=== PATIENT | female | born 1995 | race Caucasian/White ===

== ENCOUNTER 2022-02-18 10:44 | Emergency (ER) | payer MEDICAID, SELFPAY ==
[2022-02-18 10:46] VITALS: BP 102/53; PULSE 80; RESP 16; TEMP 37.1; O2SAT 98
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
--- NOTE | 2022-02-18 11:22 | NUR.NOTE ---
brought to rm [id number] for SANE exam-sumaya glover RN.Nursing Note:
[2022-02-18] MEDS: LORazepam 1 MG TAB PO (12:01)
--- NOTE | 2022-02-18 12:06 | NUR.NOTE ---
Nursing Note: Umbrella worker came down to the ED and got the patient's belongings. Black duffel bag, white sneaker type shoes, green canvas purse. She took them up to the room that the SANE exam was being done in. Lalita Pendleton
[2022-02-18] MEDS: Lidocaine 2% Viscous 15 ML CUP MM (13:16)
[2022-02-18] MEDS: Doxycycline Hyclate 100 MG CAP PO (13:16)
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
--- NOTE | 2022-02-18 14:09 | NUR.NOTE ---
Addendum entered by Lalita Pendleton 02/18/22 14:14: Patient just stated to me that her ride cannot come and get her and will need [facility]. Original Note: Nursing Note: Patient just stated that she was able to obtain a ride home by [facility]. So we are to cancel [facility]. Lalita Pendleton
[2022-02-19 14:16] LABS: Chlamydia Result Negative (Negative); GC Result Negative (Negative)
== END 2022-02-18 13:40 | disposition home or self-care (01) ==
PROVIDERS: Emergency Provider Emergency Medicine; Referring Provider Emergency Medicine
DX: T74.21XA Adult sexual abuse, confirmed, initial encounter (principal); Z11.3 Encounter for screening for infections with a predominantly sexual mode of transmission
CPT/HCPCS: 87491; 87591; 96372; 99285; 99284